=== PATIENT | female | born 1975 ===

== ENCOUNTER → 2020-03-20 | Outpatient (REF) | payer OTHER, BC | LOC: M LAB REF 12:18 | PROVIDERS: ATTEND Ophthalmology | DX: H02.63 Xanthelasma of right eye, unspecified eyelid (principal); H02.66 Xanthelasma of left eye, unspecified eyelid ==

== ENCOUNTER → 2022-12-21 | Outpatient (REF) | payer OTHER, BC | LOC: M LAB REF 16:01 | PROVIDERS: ATTEND Ophthalmology | DX: H02.61 Xanthelasma of right upper eyelid (principal); H02.62 Xanthelasma of right lower eyelid ==